=== PATIENT | male | born 1955 | race Caucasian/White ===

== ENCOUNTER 2025-01-11 08:54 | Inpatient (IN) | payer OTHER ==
[~2025-01-11] VITALS: Ht 182.9 cm; Wt 104.3 kg
[2025-01-11 09:16] VITALS: O2SAT 92
[2025-01-11] MEDS ORDERED: METFORMIN HCL500 M3 PO (09:19)
--- NOTE | 2025-01-11 09:19 | NUR ---
PACIENTE ALERTA Y ORIENTADO X3 QUIEN LLEGA EN AMBULANCIA DE CRUCERO POR SEPSIS. SE MONITOREAN S/V. AL MOMENTO DE TRIAGE PACIENTE REFIERE NO SENTIR DOLOR. SE UBICA PACIENTE.
[2025-01-11] MEDS ORDERED: IPRATROPIUM BROMIDE 0.5 MG/2.5 ML AMPUL.NEB IH SCH ×2 (09:45→18:00)
[2025-01-11] MEDS ORDERED: CEFTRIAXONE SODIUM 1,000 MG VIAL IV ONE (09:45)
[2025-01-11] MEDS ORDERED: METHYLPREDNISOLONE SOD SUCC 125 MG VIAL IV ONE (09:45)
[2025-01-11] MEDS ORDERED: LEVALBUTEROL HCL 1.25 MG/3 ML SOLUTION IH SCH ×2 (09:45→17:00)
[2025-01-11] MEDS ORDERED: IPRATROPIUM BROMIDE 0.5 MG/2.5 ML AMPUL.NEB IH ONE ×3 (10:24→17:30)
[2025-01-11] MEDS ORDERED: LEVALBUTEROL HCL 0.63 MG/3 ML SOLUTION IH ONE ×2 (10:25→17:30)
[2025-01-11 10:41] LABS: BASO % 0.4 % (0.1-1.2); EOS # 0.06 (0.04-0.54); EOS % 1.2 % (0.7-7.0); LYMPH # 1.39 (1.18-3.74); LYMPH % 26.9 % (19.3-53.1); MEAN PLATELET VOLUME 8.60 fl (9.4-12.4); MONO # 0.43 (0.24-0.82); MONO % 8.3 % (4.7-12.5); NEUT # 3.25 (1.56-6.13); NEUT % 62.8 % (34.0-71.1); RED CELL DISTRIBUTION WIDTH 13.4 % (11.6-14.4)
[2025-01-11] MEDS ORDERED: METHYLPREDNISOLONE SOD SUCC 125 MG VIAL ONE (10:45)
[2025-01-11] MEDS ORDERED: CEFTRIAXONE SODIUM 1,000 MG VIAL ONE (10:45)
[2025-01-11 10:49] LABS: ERYTHROCYTE SEDIMENTATION RATE 41 mm/hr (0-20)
--- NOTE | 2025-01-11 11:06 | NUR ---
PACIENTE EVLAUADO POR QUIEN ORDENA TRATMIENTO MEDICO, SE LE ORIENTA A PACIENTE SOBRE EL MISMO Y REFIERE ENTENDER, SE LE COLECTAN MUESTRAS, SE LE CANALIZA Y SE LE ADMINISTRAN MEDICAMENTOS CATHY ORDEN. SE CONECTA PACIENTE A MONITOR CARDIACO Y OXIMENTRIA DE PULSO CONTINUA. SE LE REALIZA EKG. SE MANTIENE BAJO OBSERVACION.
[2025-01-11 11:17] LABS: INR 1.07
[2025-01-11 11:23] LABS: BUN CREA RATIO 9.0 (7.0-25.0); CREATININE SERUM 0.91 mg/dL (0.70-1.30); GFR 82.13; GLUCOSE FASTING 126.0 mg/dL (65-100); OSMOLALITY SERUM 274.0 MOSM/KG (275-295)
[2025-01-11 12:01] LABS: URINE APPEARANCE Clear; URINE BILIRRUBIN Negative (NEGATIVE); URINE BLOOD Moderate; URINE COLOR Yellow; URINE GLUCOSE Negative (NEGATIVE); URINE KETONE Negative (NEGATIVE); URINE LEUKOCYTE Negative; URINE NITRATE Negative; URINE PROTEIN Negative (NEGATIVE); URINE UROBILINOGEN 0.2 E.U./dl
[2025-01-11 12:03] LABS: URINE RBC 111.5 uL (0.0-20.8)
[2025-01-11 12:08] LABS: URINE BACTERIA 1.1 uL (0.0-1933); URINE CAST 0.00 uL (0.0-1.40); URINE EPITHELIAL CELLS 0.7 uL (0.0-38.8); URINE WBC 0.6 uL (0.0-23.2)
[2025-01-11 12:12] LABS: COVID-19 AG NEGATIVE (NEGATIVE)
[2025-01-11] MEDS ORDERED: 0.9 % SODIUM CHLORIDE 1,000 ML IV SCH (13:15)
[2025-01-11] MEDS ORDERED: DEXTROSE 50 % IN WATER 0.5 G/ML DISP.SYRIN IV PRN (13:15)
[2025-01-11] MEDS ORDERED: hydrALAZINE HCL 20 MG VIAL IV PRN (13:15)
[2025-01-11] MEDS ORDERED: INSULIN LISPRO 1,000 UNIT/10 ML UNITS SUBCUTANEO PRN (13:15)
[2025-01-11] MEDS ORDERED: ONDANSETRON HCL 4 MG in 0.9 % SODIUM CHLORIDE 50 ML IV PRN (13:15)
[2025-01-11] MEDS ORDERED: ACETAMINOPHEN 325 MG TABLET PO PRN (13:15)
[2025-01-11] MEDS ORDERED: LEVALBUTEROL HCL 1.25 MG/3 ML SOLUTION IH ONE (13:33)
[2025-01-11 15:35] VITALS: BP 117/58
[2025-01-11] MEDS ORDERED: PIPERACILLIN/TAZOBACTAM SODIUM 3.375 GM VIAL IV ONE (16:02)
[2025-01-11] MEDS ORDERED: GUAIFENESIN 200 MG/10 ML BLIST.PACK PO ONE (16:02)
[2025-01-11] MEDS ORDERED: PIPERACILLIN/TAZOBACTAM SODIUM 3.375 GM in 0.9 % SODIUM CHLORIDE 100 ML IV SCH (18:00)
[2025-01-11] MEDS ORDERED: GUAIFENESIN 200 MG/10 ML BLIST.PACK PO SCH (18:00)
[2025-01-11] MEDS ORDERED: ACETAMINOPHEN 500 MG GEL..CAP PO PRN (19:00)
[2025-01-11] MEDS ORDERED: PANTOPRAZOLE SODIUM 40 MG/VIAL VIAL IV SCH (21:00)
== END 2025-01-11 19:29 | disposition left against medical advice (07) | DRG 195 ==
LOC: ER 08:54 → MEDJ 17:03
PROVIDERS: General Practice; ADMIT Internal Medicine; ATTEND Internal Medicine
PROC: BB24ZZZ Computerized Tomography (CT Scan) of Bilateral Lungs (ICD-10-PCS; principal; 2025-01-11)
PROC: 4A033R1 Measurement of Arterial Saturation, Peripheral, Percutaneous Approach (ICD-10-PCS; 2025-01-11)
PROC: 3E0F7GC Introduction of Other Therapeutic Substance into Respiratory Tract, Via Natural or Artificial Opening (ICD-10-PCS; 2025-01-11)
DX: J18.1 Lobar pneumonia, unspecified organism (principal); R50.9 Fever, unspecified; Z53.29 Procedure and treatment not carried out because of patient's decision for other reasons; R09.02 Hypoxemia